=== PATIENT | male | born 1980 | race Caucasian/White ===

== ENCOUNTER 2016-07-04 21:17 | Emergency (ER) | payer SELFPAY ==
[~2016-07-04] VITALS: Wt 85.0 kg
[~2016-07-04 21:17] MED LIST: CYCL-319 PO; IBUP-1542 PO; NAPR-260 PO; TRAM50TA2 PO
[2016-07-04] MEDS ORDERED: CEFTRIAXONE 250 MG INJ IM ONE (22:30)
[2016-07-04] MEDS ORDERED: AZITHROMYCIN 250 MG TAB PO ONE (22:30)
[2016-07-04 22:41] LABS: URINE BLOOD (Dip) POC Negative (NEGATIVE)
--- NOTE | 2016-07-04 23:02 | ERD ---
ER Documentation Chief Complaint Date/Time DATE: 07/04/16 TIME: 22:59 Chief Complaint tip of penile pain x 1 day HPI This is a 35-year-old male presents to the ER with dysuria that started today. Patient states that he expresses burning at the tip of his penis every time he urinates. Patient denies any penile discharge, or penile lesions. Patient denies any anal pain. He denies any urinary retention. Patient denies any fevers or chills. He is currently sexually active continue women. He uses condom while having sexual intercourse, however does not use condoms while having oral intercourse. ROS 12 point review of systems was done, all negative except per HPI. Medications Home Meds Active Scripts Naproxen* (Naprosyn*) 500 Mg Tablet, 500 MG PO BID Y for PAIN AND/OR INFLAMMATION, #30 TAB Prov:LIANG MEDEROS. DIVISIONAL HUMAN RESOURCES DIRECTOR 03/03/16 Ibuprofen* (Motrin*) 600 Mg Tab, 600 MG PO Q6, #30 TAB Prov:JAMES RODRIGUEZ 06/20/15 Tramadol HCl (Tramadol HCl) 50 Mg Tab, 50 MG PO Q6 Y for PAIN, #10 TAB Prov:BUD HARTMAN 03/12/15 Naproxen* (Naprosyn*) 500 Mg Tablet, 500 MG PO BID Y for PAIN AND/OR INFLAMMATION, #30 TAB Prov:ELY JUAREZ PA-C 02/19/15 Cyclobenzaprine Hcl* (Cyclobenzaprine Hcl*) 10 Mg Tablet, 10 MG PO TID, #20 TAB Prov:ELY JUAREZ PA-C 02/19/15 Reported Medications [none] Unknown Strength No Conflict Check 06/18/15 Allergies Allergies: Coded Allergies: Fish Containing Products (Verified Allergy, Unknown, RASH, 07/04/16) guaifenesin (Verified Allergy, Unknown, 07/04/16) PMhx/Soc Medical and Surgical Hx: pt denies Medical Hx, pt denies Surgical Hx History of Surgery: No Anesthesia Reaction: No Hx Neurological Disorder: No Hx Respiratory Disorders: No Hx Cardiac Disorders: No Hx Psychiatric Problems: No Hx Miscellaneous Medical Probl: No Hx Alcohol Use: Yes Hx Substance Use: No Hx Tobacco Use: No Physical Exam Vitals Vital Signs Date Time Temp Pulse Resp B/P Pulse Ox O2 Delivery O2 Flow Rate FiO2 07/04/16 21:25 98.5 69 20 147/85 99 Physical Exam GENERAL: The patient is well developed and appropriate for usual state of health , in no apparent distress. HEENT: Atraumatic. CHEST: Clear to auscultation bilaterally. There are no rales, wheezes or rhonchi. HEART: Regular rate and rhythm. No murmurs, clicks, rubs or gallops. ABDOMEN: Soft, nontender and nondistended. Good bowel sounds. No rebound or guarding. No gross peritonitis. No gross organomegaly or masses. No Ortiz sign or McBurney point tenderness. BACK: No midline or flank tenderness. : No penile discharge, redness, lesions. No testicular pain or swelling NEURO: Alert and oriented. Results 24 hrs Laboratory Tests Test 07/04/16 22:42 Bedside Urine Blood Negative Bedside Urine Glucose (UA) Negative Bedside Urine Ketones (LAB) Negative Bedside Urine Leukocyte Esterase (L Negative Bedside Urine Nitrite (LAB) Negative Bedside Urine Protein (LAB) Negative Bedside Urine pH (LAB) 6.5 Current Medications Medications (Trade) Dose Ordered Sig/Kacy Route PRN Reason Start Time Stop Time Status Last Admin Dose Admin Ceftriaxone Sodium (Rocephin) 250 mg ONCE ONCE IM 07/04/16 22:30 07/04/16 22:31 DC Azithromycin (Zithromax) 1,000 mg ONCE ONCE PO 07/04/16 22:30 07/04/16 22:31 DC Departure Diagnosis: Primary Impression: Dysuria Condition: Stable Patient Instructions: Dysuria Additional Instructions: Call your primary care doctor TOMORROW for an appointment during the next 1-2 days.See the doctor sooner or return here if your condition worsens before your appointment time. JAMES RODRIGUEZ Jul 04, 2016 23:02
[2016-07-04 23:10] VITALS: RESP 20; TEMP 98
== END 2016-07-04 23:10 | disposition home or self-care (01) ==
LOC: FTE 21:17
DX: R30.0 Dysuria (principal)
CPT/HCPCS: 81003; 87591; J0696; 96372

== ENCOUNTER 2016-07-08 11:41 | Emergency (ER) | payer SELFPAY ==
[~2016-07-08] VITALS: Ht 170.2 cm; Wt 83.0 kg
[2016-07-08 12:06] VITALS: Ht 170.2 cm; Wt 83.0 kg
== END 2016-07-08 18:30 | disposition left against medical advice (07) ==
LOC: FTE 11:41
DX: Z53.21 Procedure and treatment not carried out due to patient leaving prior to being seen by health care provider (principal)

== ENCOUNTER 2016-07-30 08:09 | Emergency (ER) | payer MEDICAID ==
[~2016-07-30] VITALS: Wt 72.0 kg
[2016-07-30] MEDS ORDERED: KETOROLAC 30 MG INJ IM STA (08:52)
--- NOTE | 2016-07-30 09:27 | ERD ---
ER Documentation Chief Complaint Date/Time DATE: 07/30/16 TIME: 09:24 Chief Complaint headache with no fevers and no neuro deficit. no recent trauma HPI 36-year-old male complaining of headaches 3 days. The pain is in the bilateral parietal region. He took Tylenol at home without resolution of the headache. Patient stated that he had similar headaches in the past, but usually resolve with Tylenol. Patient also reports feeling dizzy when he is standing up. States that he drinks at least 6 bottles of water a day. He is under a lot of stress at home, taking care of his mother who recently had a stroke in addition of being a single parent. Denies fever or chills. Denies fatigue. Denies shortness of breath. Denies recent head trauma. Denies visual or auditory deficits. Denies one-sided numbness or weakness. ROS All systems reviewed and are negative except as per history of present illness. Medications Home Meds Active Scripts Acetaminophen/Caffeine (Excedrin Tension Headache Cplt) 1 Each Tablet, 1 EACH PO Q6, #30 TAB Prov:LIANG MEDEROS. GYRO MECHANIC 07/30/16 Naproxen* (Naprosyn*) 500 Mg Tablet, 500 MG PO BID Y for PAIN AND/OR INFLAMMATION, #30 TAB Prov:LIANG MEDEROS. GYRO MECHANIC 03/03/16 Ibuprofen* (Motrin*) 600 Mg Tab, 600 MG PO Q6, #30 TAB Prov:JAMES RODRIGUEZ 06/20/15 Tramadol HCl (Tramadol HCl) 50 Mg Tab, 50 MG PO Q6 Y for PAIN, #10 TAB Prov:BUD HARTMAN 03/12/15 Naproxen* (Naprosyn*) 500 Mg Tablet, 500 MG PO BID Y for PAIN AND/OR INFLAMMATION, #30 TAB Prov:ELY JUAREZ PA-C 02/19/15 Cyclobenzaprine Hcl* (Cyclobenzaprine Hcl*) 10 Mg Tablet, 10 MG PO TID, #20 TAB Prov:ELY JUAREZ PA-C 02/19/15 Reported Medications [none] Unknown Strength No Conflict Check 06/18/15 Allergies Allergies: Coded Allergies: Fish Containing Products (Verified Allergy, Unknown, RASH, 07/04/16) guaifenesin (Verified Allergy, Unknown, 07/04/16) PMhx/Soc Medical and Surgical Hx: pt denies Medical Hx History of Surgery: No Anesthesia Reaction: No Hx Neurological Disorder: No Hx Respiratory Disorders: No Hx Cardiac Disorders: No Hx Psychiatric Problems: No Hx Miscellaneous Medical Probl: No Hx Alcohol Use: Yes (almost daily) Hx Substance Use: No Hx Tobacco Use: No Physical Exam Vitals Vital Signs Date Time Temp Pulse Resp B/P Pulse Ox O2 Delivery O2 Flow Rate FiO2 07/30/16 08:11 98.5 72 16 130/85 99 Physical Exam General impression: Well-developed, well-nourished. Alert, oriented, in no acute distress Head: Normocephalic, atraumatic. Eyes: PERRL, EOM normal. Conjunctiva not injected. ENT: External canals clear. TM's pearly lacy. Nasal mucosa, oral mucosa and oropharynx are normal. Neck: Supple, nontender. No lymphadenopathy. No nuchal rigidity. Bilateral upper trapezius spasm noted Respiration: Normal respiratory effort. Lungs clear to auscultate bilaterally. No wheezes, rales or rhonchi. Cardiovascular: Regular rate and rhythm. No murmurs or extra heart sounds. Neuro: Mental status normal, speech normal. SOFTWARE DEVELOPMENT INTERN II-XII intact. Normal sensation and strength in all 4 extremities. No focal weakness noted. Skin: Normal turgor. No rash or lesions. Psych: Normal mood and affect. Results 24 hrs Current Medications Medications (Trade) Dose Ordered Sig/Kacy Route PRN Reason Start Time Stop Time Status Last Admin Dose Admin Ketorolac Tromethamine (Toradol) 30 mg ONCE STAT IM 07/30/16 08:52 07/30/16 08:53 DC 07/30/16 09:08 Procedures/MDM Toradol 30 mg IM given to the patient in the ED. Patient reports improvement of headache after Toradol. Low suspicion for intracranial hemorrhage, brain tumor , stroke, or vertebral artery dissection. Patient appears well, stable for discharge and outpatient management. Medical decision making shared with patient and family. Education provided to patient and family. Patient and family expressed understanding of the plan. Medications on discharge: Excedrin tension headache. Follow-up: Primary care provider in 2-3 days or return to ED if worse. LIANG MEDEROS NP Jul 30, 2016 09:27
[2016-07-30] MEDS ORDERED: ACET1TAB16 PO (09:48)
== END 2016-07-30 09:59 | disposition home or self-care (01) ==
LOC: FTE 08:09
DX: R51 Headache (principal); R42 Dizziness and giddiness
CPT/HCPCS: 96372; J1885; Z7502

== ENCOUNTER 2016-09-12 21:56 | Emergency (ER) | payer BC, MEDICAID ==
[~2016-09-12] VITALS: Ht 165.1 cm; Wt 83.0 kg
[~2016-09-12 21:56] MED LIST changes: +ACET1TAB16 PO
[2016-09-12 22:01] VITALS: Ht 165.1 cm; Wt 83.0 kg
--- NOTE | 2016-09-12 22:43 | ERD ---
ER Documentation Chief Complaint Date/Time DATE: 09/12/16 TIME: 22:26 Chief Complaint headache x 1 month HPI 36-year-old male presents here in emergency department for complaints of headache for one month, has been seen a month ago for the same problem, continues to have the headache, was taking Excedrin and naproxen only moderately. Patient describing the pain as throbbing pain,4/10 scale, accompanied with nausea. Patient has been nauseous. Patient denies any fever or chills. Patient denies any recent travel. Patient denies any neck rigidity. Patient denies any numbness or tingling. Patient denies any blurry vision. ROS All systems reviewed and are negative except as per history of present illness. Medications Home Meds Active Scripts Acetaminophen/Caffeine (Excedrin Tension Headache Cplt) 1 Each Tablet, 1 EACH PO Q6, #30 TAB Prov:LIANG MEDEROS. AGRICULTURAL RESEARCH TECHNICIAN 07/30/16 Naproxen* (Naprosyn*) 500 Mg Tablet, 500 MG PO BID Y for PAIN AND/OR INFLAMMATION, #30 TAB Prov:LIANG MEDEROS. AGRICULTURAL RESEARCH TECHNICIAN 03/03/16 Ibuprofen* (Motrin*) 600 Mg Tab, 600 MG PO Q6, #30 TAB Prov:JAMES RODRIGUEZ 06/20/15 Tramadol HCl (Tramadol HCl) 50 Mg Tab, 50 MG PO Q6 Y for PAIN, #10 TAB Prov:BUD HARTMAN 03/12/15 Naproxen* (Naprosyn*) 500 Mg Tablet, 500 MG PO BID Y for PAIN AND/OR INFLAMMATION, #30 TAB Prov:ELY JUAREZ PA-C 02/19/15 Cyclobenzaprine Hcl* (Cyclobenzaprine Hcl*) 10 Mg Tablet, 10 MG PO TID, #20 TAB Prov:ELY JUAREZ PA-C 02/19/15 Reported Medications [none] Unknown Strength No Conflict Check 06/18/15 Allergies Allergies: Coded Allergies: Fish Containing Products (Verified Allergy, Unknown, RASH, 07/04/16) guaifenesin (Verified Allergy, Unknown, 07/04/16) PMhx/Soc Medical and Surgical Hx: pt denies Medical Hx, pt denies Surgical Hx History of Surgery: No Anesthesia Reaction: No Hx Neurological Disorder: No Hx Respiratory Disorders: No Hx Cardiac Disorders: No Hx Psychiatric Problems: No Hx Miscellaneous Medical Probl: No Hx Alcohol Use: Yes (almost daily) Hx Substance Use: No Hx Tobacco Use: No FmHx Family History: No coronary disease, No diabetes, No other Physical Exam Vitals Vital Signs Date Time Temp Pulse Resp B/P Pulse Ox O2 Delivery O2 Flow Rate FiO2 09/12/16 22:01 98.4 64 20 143/89 98 Physical Exam GENERAL: The patient is well developed and appropriate for usual state of health, in no apparent distress. CHEST: Clear to auscultation bilaterally. There are no rales, wheezes or rhonchi. HEART: Regular rate and rhythm. No murmurs, clicks, rubs or gallops. No S3 or S4. ABDOMEN: Soft, nontender and nondistended. Good bowel sounds. No rebound or guarding. No gross peritonitis. No gross organomegaly or masses. No Ortiz sign or McBurney point tenderness. BACK: No midline or flank tenderness. EXTREMITIES: Equal pulses bilaterally. There is no peripheral clubbing, cyanosis or edema. No focal swelling or erythema. Full range of motion. Grossly neurovascularly intact. NEURO: Alert and oriented. Cranial nerves 2-12 intact. Motor strength in all 4 extremities with 5/5 strength. Sensation grossly intact. Normal speech and gait. SKIN: There is no apparent rash or petechia. The skin is warm and dry. HEMATOLOGIC AND LYMPHATIC: There is no evidence of excessive bruising or lymphedema. No gross cervical, axillary, or inguinal lymphadenopathy. Results 24 hrs PROCEDURE: Noncontrast CT Head. CLINICAL INDICATION: Pain. TECHNIQUE: Noncontrast CT of the head was obtained. The administered radiation dose was CTDI vol = 45 mGy, DLP = 720 mGy-cm. COMPARISON: No pertinent prior examinations were submitted for comparison. FINDINGS: The ventricles and sulci are within normal limits. There is no acute intracranial hemorrhage or extra-axial fluid collection. There is no mass effect. No midline shift is identified. There is no loss of escobar-white differentiation to suggest acute infarction. The orbits are within normal limits. The paranasal sinuses and mastoid air cells are without fluid. No destructive osseous lesion is identified. IMPRESSION: No acute findings. RPTAT: HIKT .Artie Chapa MD, MD Date Time Electronically viewed and signed by .Artie Chapa MD, on 09/12/2016 23:30 .T/ CC: LUDMILA BARRERA NP Procedures/MDM Medical Decision Making: Patient's symptoms of headache nonspecific at this time , possible migraine headache, tension headache. There is low suspicion for neurological emergencies at this time since patients neurologic exam is normal. Patient did not have any altered level consciousness, vomiting, changes in balance or memory and did not have any acute injury. Patients CT scan of the head does not show any neurological emergencies at this time. Rx: Tramadol, Zofran Departure Diagnosis: Primary Impression: Headache Headache type: unspecified Headache chronicity pattern: acute headache Intractability: not intractable Qualified Code: R51 - Acute nonintractable headache, unspecified headache type Condition: Stable Patient Instructions: Self-Care for Headaches LUDMILA BARRERA NP Sep 12, 2016 22:42
--- NOTE | 2016-09-12 23:30 | RADRPT ---
PROCEDURE: Noncontrast CT Head. CLINICAL INDICATION: Pain. TECHNIQUE: Noncontrast CT of the head was obtained. The administered radiation dose was CTDI vol = 45 mGy, DLP = 720 mGy-cm. COMPARISON: No pertinent prior examinations were submitted for comparison. FINDINGS: The ventricles and sulci are within normal limits. There is no acute intracranial hemorrhage or ext ra-axial fluid collection. There is no mass effect. No midline shift is identified. There is no loss of escobar-white differentiation to suggest acute infarction. The orbits are within normal limits. The paranasal sinuses and mastoid air cells are without fluid. No destructive osseous lesion is identified. IMPRESSION: No acute findings. RPTAT: HIKT .Artie Chapa MD, MD Date Time Electronically viewed and signed by .Artie Chapa MD, on 09/12/2016 23:30 .T/
[2016-09-12] MEDS ORDERED: TRAM50TA2 PO (23:44)
== END 2016-09-12 23:56 | disposition home or self-care (01) ==
LOC: FTE 21:56
DX: R51 Headache (principal)
CPT/HCPCS: 70450

== ENCOUNTER 2017-02-02 08:13 | Emergency (ER) | payer BC ==
[~2017-02-02] VITALS: Ht 162.6 cm; Wt 83.0 kg
[2017-02-02 08:16] VITALS: Ht 162.6 cm; Wt 83.0 kg
[2017-02-02 08:57] LABS: BASOPHIL # 0.1 10^3/ul (0.0-0.1); BASOPHILS % 0.7 % (0.0-2.0); EOSINOPHILS # 0.3 10^3/ul (0.0-0.5); EOSINOPHILS % 3.7 % (0.0-7.0); HEMATOCRIT 40.9 % (42.0-52.0); HEMOGLOBIN 13.7 g/dl (14.0-18.0); LYMPHOCYTES # 2.5 10^3/ul (0.8-2.9); LYMPHOCYTES % 37.1 % (15.0-51.0); MEAN CORPUSCULAR HEMOGLOBIN 28.8 pg (29.0-33.0); MEAN CORPUSCULAR HGB CONC 33.5 g/dl (32.0-37.0); MEAN CORPUSCULAR VOLUME 86.1 fl (82.0-101.0); MEAN PLATELET VOLUME 10.3 fl (7.4-10.4); MONOCYTE # 0.5 10^3/ul (0.3-0.9); MONOCYTES % 7.4 % (0.0-11.0); NEUTROPHILS % 50.8 % (39.0-77.0); PLATELET COUNT 286 10^3/UL (140-415); RED BLOOD COUNT 4.75 10^6/ul (4.70-6.10); RED CELL DISTRIBUTION WIDTH 14.6 % (11.5-14.5); WHITE BLOOD COUNT 6.7 10^3/ul (4.8-10.8)
[2017-02-02] MEDS ORDERED: IBUPROFEN 600 MG TAB PO ONE (09:00)
[2017-02-02 09:07] LABS: ADD UMIC YES; UR ASCORBIC ACID NEGATIVE (NEGATIVE); UR BILIRUBIN (Dip) NEGATIVE (NEGATIVE); UR BLOOD (Dip) NEGATIVE (NEGATIVE); UR CLARITY CLEAR (CLEAR); UR COLOR COLORLESS (YELLOW); UR GLUCOSE (Dip) NEGATIVE (NEGATIVE); UR KETONES (Dip) NEGATIVE (NEGATIVE); UR LEUKOCYTE ESTERASE (Dip) TRACE Leu/ul (NEGATIVE); UR NITRITE (Dip) NEGATIVE (NEGATIVE); UR RBC 2 /HPF (0-5); UR SPECIFIC GRAVITY (Dip) 1.004 (1.003-1.030); UR TOTAL PROTEIN (Dip) NEGATIVE (NEGATIVE); UR UROBILINOGEN (Dip) NEGATIVE (NEGATIVE)
--- NOTE | 2017-02-02 09:10 | RADRPT ---
PROCEDURE: CT Abdomen and Pelvis without contrast. CLINICAL INDICATION: Abdominal pain. TECHNIQUE: Routine abdominopelvic CT was performed without intravenous contrast and reformatted in the axial, coronal, sagittal planes. Radiation dose: CTDIvol (mGy) = 15.0; total DLP mGy-cm = 991. One or more of the following radiation dose techniques were used: -Automated exposure control. -Adjust of the mA and/or kV according to patient size. -Use of iterative reconstruction technique. COMPARISON: None. FINDINGS: Kidneys demonstrate symmetric attenuation without hydronephrosis or obstructive uropathy. The disten ded urinary bladder demonstrates no stones or focal abnormality. Liver, gallbladder, biliary system, pancreas, adrenal glands, and spleen are unremarkable by unenhan herrera CT. No abnormal bowel wall thickening or dilatation. The appendix is normal. Small bilateral fat contain ing inguinal hernia. Pelvic viscera is unremarkable. No free fluid or fluid collection. Lung bases are clear. IMPRESSION: No abdominopelvic mass, lymphadenopathy, or focal acute inflammatory process. RPTAT: EE .Lavelle Boo MD, Date Time Electronically viewed and signed by .Lavelle Boo MD, on 02/02/2017 09:16 .C/
--- NOTE | 2017-02-02 09:34 | ERD ---
ER Documentation Chief Complaint Date/Time DATE: 02/02/17 TIME: 09:33 Chief Complaint LLQ PAIN X6 DAYS, DENIES VOMITTING HPI 36-year-old male otherwise healthy presents with a six-day history of left lower quadrant abdominal pain. He describes a sharp, intermittent, localized. He also states he has had some pain when he goes to urinate. He denies hematuria, flank pain. He denies fevers or chills, nausea, vomiting, diarrhea. ROS All systems reviewed and are negative except as per history of present illness. Medications Home Meds Active Scripts Ibuprofen* (Motrin*) 600 Mg Tab, 600 MG PO Q6, #30 TAB Prov:MARY DUNN PA-C 02/02/17 Tramadol HCl (Tramadol HCl) 50 Mg Tablet, 50 MG PO Q6 Y for SEVERE PAIN LEVEL 7- 10, #20 TAB Prov:LUDMILA BARRERA WOOD TREATING INSPECTOR 09/12/16 Acetaminophen/Caffeine (Excedrin Tension Headache Cplt) 1 Each Tablet, 1 EACH PO Q6, #30 TAB Prov:LIANG MEDEROS. WOOD TREATING INSPECTOR 07/30/16 Naproxen* (Naprosyn*) 500 Mg Tablet, 500 MG PO BID Y for PAIN AND/OR INFLAMMATION, #30 TAB Prov:LIANG MEDEROS. WOOD TREATING INSPECTOR 03/03/16 Ibuprofen* (Motrin*) 600 Mg Tab, 600 MG PO Q6, #30 TAB Prov:JAMES RODRIGUEZ 06/20/15 Tramadol HCl (Tramadol HCl) 50 Mg Tab, 50 MG PO Q6 Y for PAIN, #10 TAB Prov:BUD HARTMAN 03/12/15 Naproxen* (Naprosyn*) 500 Mg Tablet, 500 MG PO BID Y for PAIN AND/OR INFLAMMATION, #30 TAB Prov:ELY JUAREZ PA-C 02/19/15 Cyclobenzaprine Hcl* (Cyclobenzaprine Hcl*) 10 Mg Tablet, 10 MG PO TID, #20 TAB Prov:ELY JUAREZ PA-C 02/19/15 Reported Medications [none] Unknown Strength No Conflict Check 06/18/15 Allergies Allergies: Coded Allergies: Fish Containing Products (Verified Allergy, Unknown, RASH, 07/04/16) guaifenesin (Verified Allergy, Unknown, 07/04/16) PMhx/Soc Medical and Surgical Hx: pt denies Medical Hx, pt denies Surgical Hx History of Surgery: No Anesthesia Reaction: No Hx Neurological Disorder: No Hx Respiratory Disorders: No Hx Cardiac Disorders: No Hx Psychiatric Problems: No Hx Miscellaneous Medical Probl: No Hx Alcohol Use: Yes (almost daily) Hx Substance Use: No Hx Tobacco Use: No Physical Exam Vitals Vital Signs Date Time Temp Pulse Resp B/P Pulse Ox O2 Delivery O2 Flow Rate FiO2 02/02/17 08:16 97.5 60 18 138/91 98 Physical Exam General: Well-developed, well-nourished. The patient appears in no acute distress. HEENT: Head is normocephalic, atraumatic. No scleral icterus Neck: Supple. Nontender. Lungs: Clear to auscultation. Normal air movement. Heart: Regular rate and rhythm. S1 and S2 are normal. No murmurs, gallops, or rubs. Abdomen: Soft, mild tenderness in the left lower quadrant, no masses or rebound pain, nondistended. Bowel sounds are normoactive. Extremities: No clubbing or cyanosis. Normal pulses. Moving extremities x 4. No weakness. Neurologic: Alert and oriented 3. No focal deficits. Skin: Normal turgor. No rash or lesions. Result Diagram: 02/02/17 0849 02/02/17 0849 Results 24 hrs Laboratory Tests Test 02/02/17 08:37 02/02/17 08:49 Urine Color COLORLESS Urine Clarity CLEAR Urine pH 7.0 Urine Specific [place] 1.004 Urine Ketones NEGATIVEmg/dL Urine Nitrite NEGATIVEmg/dL Urine Bilirubin NEGATIVEmg/dL Urine Urobilinogen NEGATIVEmg/dL Urine Leukocyte Esterase TRACELeu/ul Urine Microscopic RBC 2/HPF Urine Microscopic WBC 1/HPF Urine Hemoglobin NEGATIVEmg/dL Urine Glucose NEGATIVEmg/dL Urine Total Protein NEGATIVEmg/dl White Blood Count 6.710^3/ul Red Blood Count 4.7510^6/ul Hemoglobin 13.7g/dl Hematocrit 40.9% Mean Corpuscular Volume 86.1fl Mean Corpuscular Hemoglobin 28.8pg Mean Corpuscular Hemoglobin Concent 33.5g/dl Red Cell Distribution Width 14.6% Platelet Count 29559^3/UL Mean Platelet Volume 10.3fl Neutrophils % 50.8% Lymphocytes % 37.1% Monocytes % 7.4% Eosinophils % 3.7% Basophils % 0.7% Nucleated Red Blood Cells % 0.0/100WBC Neutrophils # (Manual) 3.410^3/ul Lymphocytes # 2.510^3/ul Monocytes # 0.510^3/ul Eosinophils # 0.310^3/ul Basophils # 0.110^3/ul Nucleated Red Blood Cells # 0.010^3/ul Sodium Level 142mmol/L Potassium Level 4.1mmol/L Chloride Level 103mmol/L Carbon Dioxide Level 26mmol/L Anion Gap 17 Blood Urea Nitrogen 10mg/dl Creatinine 0.93mg/dl Glucose Level 102mg/dl Calcium Level 10.0mg/dl Total Bilirubin 0.6mg/dl Direct Bilirubin 0.00mg/dl Indirect Bilirubin 0.6mg/dl Aspartate Amino Transf (AST/SGOT) 32IU/L Alanine Aminotransferase (ALT/SGPT) 38IU/L Alkaline Phosphatase 112IU/L Total Protein 9.0g/dl Albumin 4.9g/dl Globulin 4.10g/dl Albumin/Globulin Ratio 1.19 Lipase 136U/L Current Medications Medications (Trade) Dose Ordered Sig/Kacy Route PRN Reason Start Time Stop Time Status Last Admin Dose Admin Ibuprofen (Motrin) 600 mg ONCE ONCE PO 02/02/17 09:00 02/02/17 09:01 DC 02/02/17 08:45 Ceftriaxone Sodium (Rocephin) 250 mg ONCE ONCE IM 02/02/17 10:30 02/02/17 10:31 DC 02/02/17 10:33 Azithromycin (Zithromax) 1,000 mg ONCE ONCE PO 02/02/17 10:30 02/02/17 10:31 DC 02/02/17 10:33 DIAGNOSTIC IMAGING REPORT Patient: ROCIO BRADFORD : 1980 Age: 36 Sex: M MR #: [id number] DOS: 02/02/17 0832 Ordering MD: MARY DUNN PA-C Location: [facility] Room/Bed: PROCEDURE: CT Abdomen and Pelvis without contrast. CLINICAL INDICATION: Abdominal pain. TECHNIQUE: Routine abdominopelvic CT was performed without intravenous contrast and reformatted in the axial, coronal, sagittal planes. Radiation dose: CTDIvol (mGy) = 15.0; total DLP mGy-cm = 991. One or more of the following radiation dose techniques were used: -Automated exposure control. -Adjust of the mA and/or kV according to patient size. -Use of iterative reconstruction technique. COMPARISON: None. FINDINGS: Kidneys demonstrate symmetric attenuation without hydronephrosis or obstructive uropathy. The distended urinary bladder demonstrates no stones or focal abnormality. Liver, gallbladder, biliary system, pancreas, adrenal glands, and spleen are unremarkable by unenhanced CT. No abnormal bowel wall thickening or dilatation. The appendix is normal. Small bilateral fat containing inguinal hernia. Pelvic viscera is unremarkable. No free fluid or fluid collection. Lung bases are clear. IMPRESSION: No abdominopelvic mass, lymphadenopathy, or focal acute inflammatory process. RPTAT: EE .Lavelle Boo MD, MD Date Time Electronically viewed and signed by .Lavelle Boo MD, MD on 02/02/2017 09:16 .C/ Procedures/MDM 36-year-old comes in with painful urination, left lower quadrant abdominal pain for the past week. Patient does not have any evidence of kidney stone, diverticulitis, bowel obstruction, abdominal mass. He does state that he is in a relationship with a woman who is , he has had painful urination, urine does not show any definite signs of a urinary tract infection he will be presumed urethritis. Departure Diagnosis: Primary Impression: Urethritis Additional Impression: Abdominal pain Condition: MARY Wu PA-C Feb 02, 2017 09:34
[2017-02-02 09:39] LABS: ALBUMIN 4.9 g/dl (3.3-4.9); ALBUMIN/GLOBULIN RATIO 1.19; BILIRUBIN,INDIRECT 0.6 mg/dl (0-1.1); BILIRUBIN,TOTAL 0.6 mg/dl (0.2-1.3); CREATININE 0.93 mg/dl (0.61-1.24); POTASSIUM 4.1 mmol/L (3.5-5.1)
[2017-02-02] MEDS ORDERED: IBUP-1542 PO (10:10)
[2017-02-02] MEDS ORDERED: CEFTRIAXONE 250 MG INJ IM ONE (10:30)
[2017-02-02] MEDS ORDERED: AZITHROMYCIN 250 MG TAB PO ONE (10:30)
== END 2017-02-02 10:55 | disposition home or self-care (01) ==
LOC: FTE 08:13
DX: N34.2 Other urethritis (principal)
CPT/HCPCS: 36415; 74176; 80053; 81001; 83690; 85025; 87086; 87591; 96372; J0696; Z7502; Z7610

== ENCOUNTER 2017-09-23 09:19 | Emergency (ER) | END 2017-09-23 09:59 | disposition home or self-care (01) ==

== ENCOUNTER 2018-05-31 08:14 | Emergency (ER) | payer BC ==
[~2018-05-31] VITALS: Wt 87.3 kg
[~2018-05-31 08:14] MED LIST changes: -CYCL-319 PO; +CYCL10TA7 PO; -NAPR-260 PO; +NAPR-985 PO
[2018-05-31 08:16] VITALS: BP 151/80; PULSE 86; RESP 18
[2018-05-31] MEDS ORDERED: CIPR500T4 PO (10:00)
--- NOTE | 2018-05-31 10:07 | ERD ---
ER Documentation Chief Complaint Chief Complaint PAINFUL URINATION WITH SUPRAPUBIC PAIN SINCE THURSDAY HPI Patient is a 37-year-old male with no past medical history presents ER for concerns of dysuria and suprapubic pain times 3 days. Patient states the pain originates in the suprapubic region and radiates down into his testicles. Patient denies any trauma or falls. Patient denies any penile discharge. Patient denies any fevers, chills, nausea, vomiting, flank pain or upper abdominal pain. Patient states he sexually active with his girlfriend however he denies any other partners. ROS All systems reviewed and are negative except as per history of present illness. Medications Home Meds Active Scripts Ciprofloxacin Hcl* (Ciprofloxacin Hcl*) 500 Mg Tablet, 500 MG PO BID for 10 Days, TAB Prov:RAIN WALSH PA-C 05/31/18 Ibuprofen* (Motrin*) 600 Mg Tab, 600 MG PO Q6, #30 TAB Prov:MARIZA MELISSA PA-C 05/07/18 Ibuprofen* (Motrin*) 600 Mg Tab, 600 MG PO Q6, #30 TAB Prov:MARY DUNN PA-C 02/02/17 Tramadol HCl (Tramadol HCl) 50 Mg Tablet, 50 MG PO Q6 PRN for SEVERE PAIN LEVEL 7-10, #20 TAB Prov:LUDMILA BARRERA PICKLER HELPER 09/12/16 Acetaminophen/Caffeine (Excedrin Tension Headache Cplt) 1 Each Tablet, 1 EACH PO Q6, #30 TAB Prov:LIANG MEDEROS. PICKLER HELPER 07/30/16 Naproxen* (Naprosyn*) 500 Mg Tablet, 500 MG PO BID PRN for PAIN AND/OR INFLAMMATION, #30 TAB Prov:LIANG MEDEROS. PICKLER HELPER 03/03/16 Ibuprofen* (Motrin*) 600 Mg Tab, 600 MG PO Q6, #30 TAB Prov:JAMES RODRIGUEZ 06/20/15 Tramadol HCl (Tramadol HCl) 50 Mg Tab, 50 MG PO Q6 PRN for PAIN, #10 TAB Prov:BUD HARTMAN 03/12/15 Naproxen* (Naprosyn*) 500 Mg Tablet, 500 MG PO BID PRN for PAIN AND/OR INFLAMMATION, #30 TAB Prov:ELY JUAREZ PA-C 02/19/15 Cyclobenzaprine Hcl* (Cyclobenzaprine Hcl*) 10 Mg Tablet, 10 MG PO TID, #20 TAB Prov:ELY JUAREZ MASHA 02/19/15 Reported Medications [none] Unknown Strength No Conflict Check 06/18/15 Allergies Allergies: Coded Allergies: Fish Containing Products (Verified Allergy, Unknown, RASH, 05/07/18) guaifenesin (Verified Allergy, Unknown, 05/07/18) PMhx/Soc History of Surgery: No Anesthesia Reaction: No Hx Neurological Disorder: No Hx Respiratory Disorders: No Hx Cardiac Disorders: No Hx Psychiatric Problems: No Hx Miscellaneous Medical Probl: Yes (HIGH CHOLESTEROL) Hx Alcohol Use: Yes (every weekend) Hx Substance Use: No Hx Tobacco Use: No FmHx Family History: No diabetes Physical Exam Vitals Vital Signs Date Temp Pulse Resp B/P (MAP) Pulse Ox O2 O2 Flow FiO2 Time Delivery Rate 05/31/18 97.9 86 18 151/80 100 08:16 (103) Physical Exam GENERAL: Well-developed, well-nourished male. Appears in no acute distress. HEAD: Normocephalic, atraumatic. EYES: Pupils are equally reactive bilaterally. EOMs grossly intact. No conjunctival erythema. ENT: Moist mucous membranes. No uvula deviation. No kissing tonsils. NECK: Supple. No meningismus. Normal range of motion of the neck. LUNG: Clear to auscultation bilaterally. No rhonchi, wheezing, rales or coarse breath sounds. HEART: Regular rate and rhythm. No murmurs, rubs or gallops. ABDOMEN: Soft, and nondistended. Minimally tender to palpation in the suprapubic region. Positive bowel sounds in all four quadrants. No rebound tenderness, no guarding. (-) McBurney's point tenderness. No CVA tenderness. 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 Normal, external genitalia without any lesions, masses or deformities. No penile discharge noted. Normal scrotum without any masses, tenderness, swelling or erythema. No inguinal hernias. EXTREMITIES: Equal pulses bilaterally. No peripheral clubbing, cyanosis or edema. No unilateral leg swelling. NEUROLOGIC: Alert and oriented. Moving all four extremities without any difficulty. Normal speech. Steady gait. SKIN: Normal color. Warm and dry. No rashes or lesions. Results 24 hrs Laboratory Tests Test 05/31/18 08:53 Bedside Urine pH (LAB) 6.0 Bedside Urine Protein (LAB) Negative Bedside Urine Glucose (UA) Negative Bedside Urine Ketones (LAB) Negative Bedside Urine Blood Negative Bedside Urine Nitrite (LAB) Negative Bedside Urine Leukocyte Esterase (L Negative Procedures/MDM ED COURSE: The patient was stable throughout ED course. I kept the patient and/or family informed of laboratory and diagnostic imaging results throughout the ED course. DIAGNOSTIC IMAGING: Read by radiologist. DIAGNOSTIC IMAGING REPORT Patient: ROCIO BRADFORD : 1980 Age: 37 Sex: M MR #: [id number] DOS: 05/31/18 0835 Ordering MD: RAIN WALSH PA-C Location: [facility]TE Room/Bed: PROCEDURE: US Scrotum. CLINICAL INDICATION: Pain, swelling TECHNIQUE: Multiple sonographic images of the scrotal region were obtained utilizing a linear array transducer with grayscale and color-flow and a Doppler imaging. The images were reviewed on a high-resolution PACS workstation. COMPARISON: No prior studies are available for comparison. FINDINGS: The right testicle is well visualized and has a normal echotexture. No focal areas of abnormal echogenicity are visualized. The right testicle measures 5.1 x 2.2 x 5.2 cm. There is normal color-flow. The right epididymis is visualized and unremarkable in appearance. There is normal color-flow. The left testicle is well visualized and has a normal echotexture. No focal areas abnormal echogenicity are visualized. The left testicle measures 5.0 x 2.7 x 4.0 cm. There is normal color-flow. The left epididymis is visualized and is unremarkable in appearance. There is normal color-flow. There are mild bilateral hydroceles. RPTAT: AA IMPRESSION: Mild bilateral hydroceles. Otherwise unremarkable. .Kenyon Galloway MD, MD Date Time Electronically viewed and signed by .Kenyon Galloway MD, MD on 05/31/2018 09:37 .S/ CC: RAIN WALSH PA-C [id number] MEDICAL DECISION MAKING: This is a 37-year-old male who presents the ER for concerns of dysuria and testicular pain times 3 days.. Vital signs were reviewed. Patient was afebrile. UA was negative for leukocytes, nitrates and hematuria. Urine was sent for culture. Urine also sent for gonorrhea and Chlamydia testing. Results are pending. Testicular ultrasound was benign except for some mild bilateral hydroceles see formal report above. Patient was advised we will contact him in 2-3 days if his gonorrhea chlamydia results are positive or if urine culture is positive. Patient advised I will start him on ciprofloxacin for concerns of cystitis. Low suspicion for for pyelonephritis, nephrolithiasis, appendicitis, diverticulitis, constipation, urethritis, prostatitis, epididymitis, testicular torsion. Patient was nontoxic, [id number] prior to discharge. PRESCRIPTIONS: Ciprofloxacin DISCHARGE: At this time, patient is stable for discharge and outpatient management. I have instructed the patient to follow-up with his/her primary care physician in 1-2 days. Patient should repeat UA in 2 weeks to check for resolution of urinary tract infection. If symptoms persist, patient may need to see a specialist for further examinations and testing. I have instructed the patient to promptly return to the ER at any time for any new or worsening symptoms including increased pain, fever, nausea, vomiting, urinary changes or weakness. The patient and/or family expressed understanding of and agreement with this plan. All questions were answered. Home care instructions were provided. Disclaimer: Inadvertent spelling and grammatical errors are likely due to EHR/dictation software use and do not reflect on the overall quality of patient care. Also, please note that the electronic time recorded on this note does not necessarily reflect the actual time of the patient encounter. Departure Diagnosis: Primary Impression: Dysuria Additional Impression: Testicular pain Condition: Fair Referrals: [facility] YOU HAVE RECEIVED A MEDICAL SCREENING EXAM AND THE RESULTS INDICATE THAT YOU DO NOT HAVE A CONDITION THAT REQUIRES URGENT TREATMENT IN THE EMERGENCY DEPARTMENT. FURTHER EVALUATION AND TREATMENT OF YOUR CONDITION CAN WAIT UNTIL YOU ARE SEEN IN YOUR DOCTORS OFFICE WITHIN THE NEXT 1-2 DAYS. IT IS YOUR RESPONSIBILITY TO MAKE AN APPOINTMENT FOR FOLOW-UP CARE. IF YOU HAVE A PRIMARY DOCTOR --you should call your primary doctor and schedule an appointment IF YOU DO NOT HAVE A PRIMARY DOCTOR YOU CAN CALL OUR PHYSICIAN REFERRAL HOTLINE AT IF YOU CAN NOT AFFORD TO SEE A PHYSICIAN YOU CAN CHOSE FROM THE FOLLOWING [facility] [address] [facility] [address] [facility] [address] [facility] [address] [facility] [address] [facility]. [facility] [address] [facility]. [facility] YOU HAVE RECEIVED A MEDICAL SCREENING EXAM AND THE RESULTS INDICATE THAT YOU DO NOT HAVE A CONDITION THAT REQUIRES URGENT TREATMENT IN THE EMERGENCY DEPARTMENT. FURTHER EVALUATION AND TREATMENT OF YOUR CONDITION CAN WAIT UNTIL YOU ARE SEEN IN YOUR DOCTORS OFFICE WITHIN THE NEXT 1-2 DAYS. IT IS YOUR RESPONSIBILITY TO MAKE AN APPOINTMENT FOR FOLOW-UP CARE. IF YOU HAVE A PRIMARY DOCTOR --you should call your primary doctor and schedule and appointment IF YOU DO NOT HAVE A PRIMARY DOCTOR YOU CAN CALL OUR PHYSICIAN REFERRAL HOTLINE AT . IF YOU CAN NOT AFFORD TO SEE A PHYSICIAN YOU CAN CHOSE FROM THE FOLLOWING [facility]: [facility] [address] [place] [address] [facility] [address] [place] [address] [facility] + [facility] [address] [place] [address] Additional Instructions: Urine gonorrhea and Chlamydia testing pending. We will contact you if results are positive. Call your primary care doctor TOMORROW for an appointment during the next 1-2 days.See the doctor sooner or return here if your condition worsens before your appointment time. RAIN WALSH PA-C May 31, 2018 10:07
== END 2018-05-31 10:08 | disposition home or self-care (01) ==
LOC: FTE 08:14
DX: N50.819 Testicular pain, unspecified (principal); R30.0 Dysuria
CPT/HCPCS: 76870; 81003; 87086; 87591; Z7502

== ENCOUNTER 2018-07-19 19:18 | Emergency (ER) | payer BC ==
[2017-09-23 09:21] VITALS: Wt 88.6 kg
[~2018-07-19] VITALS: Wt 88.6 kg
[~2018-07-19 19:18] MED LIST changes: +CIPR500T4 PO
[2018-07-19] MEDS ORDERED: LIDOCAINE/MYLANTA 40 ML BTL PO STA (23:57)
[2018-07-19] MEDS ORDERED: ONDANSETRON (ODT) 4 MG TAB ODT STA (23:57)
--- NOTE | 2018-07-20 00:02 | ERD ---
ER Documentation Chief Complaint Chief Complaint burning epigastric pain and constipation since thursday. HPI Patient is a 38-year-old male who presents the ER for concerns of multiple complaints. Patient states he has had epigastric pain for last 3 days. He describes the pain to be burning in nature. Patient does admit to eating numerous spicy foods. Patient also admits to drinking beer on the weekends. He also states he drinks Coke daily with dinner. Patient denies any chest pain, shortness of breath, nausea, vomiting. Patient also admits to not having a bowel movement times 3 days. He states he is often burping. He does report gas passage. He denies any history of abdominal surgeries. ROS All systems reviewed and are negative except as per history of present illness. Medications Home Meds Active Scripts Famotidine* (Pepcid*) 20 Mg Tablet, 20 MG PO BID for 30 Days, TAB Prov:RAIN WALSHC 07/20/18 Magnesium Citrate* (Magnesium Citrate*) 296 Ml Solution, 296 ML PO ONCE, #1 BOTTLE Prov:RAIN WALSHC 07/20/18 Ciprofloxacin Hcl* (Ciprofloxacin Hcl*) 500 Mg Tablet, 500 MG PO BID for 10 Days, TAB Prov:RAIN WALSHC 05/31/18 Ibuprofen* (Motrin*) 600 Mg Tab, 600 MG PO Q6, #30 TAB Prov:MARIZA MELISSAC 05/07/18 Ibuprofen* (Motrin*) 600 Mg Tab, 600 MG PO Q6, #30 TAB Prov:MARY DUNNC 02/02/17 Tramadol HCl (Tramadol HCl) 50 Mg Tablet, 50 MG PO Q6 PRN for SEVERE PAIN LEVEL 7-10, #20 TAB Prov:LUDMILA BARRERA FANCY STITCHER 09/12/16 Acetaminophen/Caffeine (Excedrin Tension Headache Cplt) 1 Each Tablet, 1 EACH PO Q6, #30 TAB Prov:LIANG MEDEROS FANCY STITCHER 07/30/16 Naproxen* (Naprosyn*) 500 Mg Tablet, 500 MG PO BID PRN for PAIN AND/OR INFLAMMATION, #30 TAB Prov:LIANG MEDEROS. FANCY STITCHER 03/03/16 Ibuprofen* (Motrin*) 600 Mg Tab, 600 MG PO Q6, #30 TAB Prov:JAMES RODRIGUEZ 06/20/15 Tramadol HCl (Tramadol HCl) 50 Mg Tab, 50 MG PO Q6 PRN for PAIN, #10 TAB Prov:BUD HARTMAN 03/12/15 Naproxen* (Naprosyn*) 500 Mg Tablet, 500 MG PO BID PRN for PAIN AND/OR INFLAMMATION, #30 TAB Prov:ELY JUAREZ PA-C 02/19/15 Cyclobenzaprine Hcl* (Cyclobenzaprine Hcl*) 10 Mg Tablet, 10 MG PO TID, #20 TAB Prov:ELY JUAREZ PA-C 02/19/15 Reported Medications [none] Unknown Strength No Conflict Check 06/18/15 Allergies Allergies: Coded Allergies: Fish Containing Products (Verified Allergy, Unknown, RASH, 05/07/18) guaifenesin (Verified Allergy, Unknown, 05/07/18) PMhx/Soc History of Surgery: No Anesthesia Reaction: No Hx Neurological Disorder: No Hx Respiratory Disorders: No Hx Cardiac Disorders: No Hx Psychiatric Problems: No Hx Miscellaneous Medical Probl: Yes (HIGH CHOLESTEROL) Hx Alcohol Use: Yes (every weekend) Hx Substance Use: No Hx Tobacco Use: No FmHx Family History: No diabetes Physical Exam Vitals Vital Signs Date Temp Pulse Resp B/P (MAP) Pulse Ox O2 O2 Flow FiO2 Time Delivery Rate 07/19/18 98.5 83 20 163/97 98 20:05 (119) Physical Exam GENERAL: Well-developed, well-nourished male. Appears in no acute distress. Speaking in full sentences. HEAD: Normocephalic, atraumatic. EYES: Pupils are equally reactive bilaterally. EOMs grossly intact. No conjunctival erythema. ENT: Moist mucous membranes. No uvula deviation. No kissing tonsils. NECK: Supple. No meningismus. Normal range of motion of the neck. LUNG: Clear to auscultation bilaterally. No rhonchi, wheezing, rales or coarse breath sounds. HEART: Regular rate and rhythm. No murmurs, rubs or gallops. ABDOMEN: Soft. Tender to palpation in the epigastric region. Mildly distended. Positive bowel sounds in all four quadrants. No rebound tenderness, no guarding. (-) McBurney's point tenderness. No CVA tenderness. EXTREMITIES: Equal pulses bilaterally. No peripheral clubbing, cyanosis or edema. No unilateral leg swelling. NEUROLOGIC: Alert and oriented. Moving all four extremities without any difficulty. Normal speech. Steady gait. SKIN: Normal color. Warm and dry. No rashes or lesions. Result Diagram: 07/20/18 0009 07/20/18 0009 Results 24 hrs Laboratory Tests Test 07/20/18 00:09 White Blood Count 7.5 10^3/ul Red Blood Count 4.87 10^6/ul Hemoglobin 13.4 g/dl Hematocrit 42.2 % Mean Corpuscular Volume 86.7 fl Mean Corpuscular Hemoglobin 27.5 pg Mean Corpuscular Hemoglobin Concent 31.8 g/dl Red Cell Distribution Width 14.6 % Platelet Count 280 10^3/UL Mean Platelet Volume 9.7 fl Immature Granulocytes % 0.300 % Neutrophils % 42.8 % Lymphocytes % 44.0 % Monocytes % 8.6 % Eosinophils % 3.6 % Basophils % 0.7 % Nucleated Red Blood Cells % 0.0 /100WBC Immature Granulocytes # 0.020 10^3/ul Neutrophils # 3.2 10^3/ul Lymphocytes # 3.3 10^3/ul Monocytes # 0.7 10^3/ul Eosinophils # 0.3 10^3/ul Basophils # 0.1 10^3/ul Nucleated Red Blood Cells # 0.0 10^3/ul Sodium Level 140 mmol/L Potassium Level 4.8 mmol/L Chloride Level 101 mmol/L Carbon Dioxide Level 29 mmol/L Anion Gap 10 Blood Urea Nitrogen 12 mg/dl Creatinine 0.90 mg/dl Est Glomerular Filtrat Rate mL/min > 60 mL/min Glucose Level 109 mg/dl Calcium Level 9.9 mg/dl Total Bilirubin 0.4 mg/dl Direct Bilirubin 0.00 mg/dl Indirect Bilirubin 0.4 mg/dl Aspartate Amino Transf (AST/SGOT) 57 IU/L Alanine Aminotransferase (ALT/SGPT) 63 IU/L Alkaline Phosphatase 107 IU/L Total Protein 8.8 g/dl Albumin 4.8 g/dl Globulin 4.00 g/dl Albumin/Globulin Ratio 1.20 Lipase 123 U/L Current Medications Medications Dose Sig/Kacy Start Time Status Last (Trade) Ordered Route PRN Stop Time Admin Dose Reason Admin 40 ml ONCE STAT 07/19/18 DC 07/20/18 Miscellaneous PO 23:57 00:20 Medication 2/25/19 23:58 (Gi Cocktail (2)) Ondansetron 4 mg ONCE STAT 07/19/18 DC 07/20/18 HCl (Zofran ODT 23:57 00:19 Odt) 07/19/18 23:58 Procedures/MDM MEDICAL DECISION MAKING: This is a 38-year-old male presents the ER for concerns of epigastric pain and constipation for the last 3 days. Patient states he does eat spicy foods daily and does drink caffeinated beverages. Patient admits to alcohol use on the weekends.. Vital signs were reviewed. Patient is afebrile. Blood work was obtained. CBC showed no evidence of systemic infection or severe anemia. CMP showed no evidence of electrolyte abnormalities, severe acidosis, alkalosis, renal failure, or liver disease. Lipase showed no evidence of acute pancreatitis. Patient was given a GI cocktail and Zofran for symptoms. Patient will be discharged home with prescription of Pepcid. Patient was advised on dietary changes. In addition patient will be given prescription for Colace and magnesium citrate for his constipation. Patient advised to drink half bottle of magnesium citrate. If no bowel movement 2-3 hours, patient advised to drink second half. At this time the patient presentation is most consistent with GERD versus gastritis and constipation. Differential diagnosis included but was not limited to acute coronary syndrome, AAA, mesenteric ischemia, lower lobe pneumonia, DKA, bowel perforation, cholecystitis, choledocholithiasis, ascending ch olangitis, hepatic abscess, pancreatitis, splenic rupture, diverticulitis, UTI, pyelonephritis, nephrolithiasis, appendicitis, constipation, testicular torsion, epididymitis, urethritis, or prostatitis. PRESCRIPTIONS: Pepcid, magnesium citrate, Colace DISCHARGE: At this time, patient is stable for discharge and outpatient management. I have instructed the patient to follow-up with his/her primary care physician in 1-2 days. I have instructed the patient to promptly return to the ER at any time for any new or worsening symptoms including increased pain, nausea, vomiting, diarrhea, fever, weakness or LOC. The patient and/or family expressed understanding of and agreement with this plan. All questions were answered. Home care instructions were provided. Disclaimer: Inadvertent spelling and grammatical errors are likely due to EHR/dictation software use and do not reflect on the overall quality of patient care. Also, please note that the electronic time recorded on this note does not necessarily reflect the actual time of the patient encounter. Departure Diagnosis: Primary Impression: Epigastric pain Additional Impression: Constipation Constipation type: unspecified constipation type Qualified Codes: K59.00 - Constipation, unspecified Condition: Stable Patient Instructions: Constipation (Adult), Gerd (Adult), Epigastric Pain (Uncertain Cause) Referrals: [facility] YOU HAVE RECEIVED A MEDICAL SCREENING EXAM AND THE RESULTS INDICATE THAT YOU DO NOT HAVE A CONDITION THAT REQUIRES URGENT TREATMENT IN THE EMERGENCY DEPARTMENT. FURTHER EVALUATION AND TREATMENT OF YOUR CONDITION CAN WAIT UNTIL YOU ARE SEEN IN YOUR DOCTORS OFFICE WITHIN THE NEXT 1-2 DAYS. IT IS YOUR RESPONSIBILITY TO MAKE AN APPOINTMENT FOR FOLOW-UP CARE. IF YOU HAVE A PRIMARY DOCTOR --you should call your primary doctor and schedule an appointment IF YOU DO NOT HAVE A PRIMARY DOCTOR YOU CAN CALL OUR PHYSICIAN REFERRAL HOTLINE AT IF YOU CAN NOT AFFORD TO SEE A PHYSICIAN YOU CAN CHOSE FROM THE FOLLOWING [facility] [address] [facility] [address] [facility] [address] [facility] [address] [facility] [address] [facility]. [facility] [address] [facility]. [facility] YOU HAVE RECEIVED A MEDICAL SCREENING EXAM AND THE RESULTS INDICATE THAT YOU DO NOT HAVE A CONDITION THAT REQUIRES URGENT TREATMENT IN THE EMERGENCY DEPARTMENT. FURTHER EVALUATION AND TREATMENT OF YOUR CONDITION CAN WAIT UNTIL YOU ARE SEEN IN YOUR DOCTORS OFFICE WITHIN THE NEXT 1-2 DAYS. IT IS YOUR RESPONSIBILITY TO MAKE AN APPOINTMENT FOR FOLOW-UP CARE. IF YOU HAVE A PRIMARY DOCTOR --you should call your primary doctor and schedule and appointment IF YOU DO NOT HAVE A PRIMARY DOCTOR YOU CAN CALL OUR PHYSICIAN REFERRAL HOTLINE AT . IF YOU CAN NOT AFFORD TO SEE A PHYSICIAN YOU CAN CHOSE FROM THE FOLLOWING [facility] INSTITUTIONS: [facility] [address] [place] [address] [facility] [address] [place] [address] [facility] [address] [place] [address] Additional Instructions: Increase water intake. Increase fiber intake. Take magnesium citrate as advised. Drink half a bottle first. If no bowel movement in 2-3 hours, drink second half. Call your primary care doctor TOMORROW for an appointment during the next 1-2 days.See the doctor sooner or return here if your condition worsens before your appointment time. RAIN WALSH PA-C Jul 20, 2018 00:02
[2018-07-20] MEDS ORDERED: MAGN296S40 PO (02:04)
[2018-07-20] MEDS ORDERED: FAMO-96 PO (02:05)
[2018-07-20 02:35] VITALS: BP 119/81; PULSE 56; RESP 19
== END 2018-07-20 02:53 | disposition home or self-care (01) ==
LOC: E/R 19:18 → FTE 07-20 02:53
DX: R10.13 Epigastric pain (principal); K59.00 Constipation, unspecified
CPT/HCPCS: 36415; 80053; 83690; 85025; Z7502; Z7610; 99283

== ENCOUNTER 2018-10-25 09:21 | Emergency (ER) | payer BC ==
[~2018-10-25] VITALS: Wt 81.0 kg
[~2018-10-25 09:21] MED LIST changes: +FAMO-96 PO; +MAGN296S40 PO
[2018-10-25 09:24] VITALS: BP 153/71; PULSE 71; RESP 18
[2018-10-25] MEDS ORDERED: BEN25 PO (10:18)
[2018-10-25] MEDS ORDERED: HC30CR25 TOP (10:18)
--- NOTE | 2018-10-25 13:24 | ERD ---
ER Documentation Chief Complaint Chief Complaint POSSIBLE INSECT BITE TO RIGHT FOREARM. REDNESS AND DRAINAGE FOR 1 WEEK HPI 38-year-old male presenting with insect bite to the right forearm. Patient states is very itchy. He has not put any medications on it. He noted some clear drainage from the area. Denies any pain. Denies other medical problems. NKDA. Surgical history denies. Social history denies ROS All systems reviewed and are negative except as per history of present illness. Medications Home Meds Active Scripts Diphenhydramine Hcl* (Benadryl*) 25 Mg Cap, 25 MG PO Q6, #30 CAP Prov:ZACARIAS FRITZC 10/25/18 Hydrocortisone* Topical (Hydrocortisone* Topical) 2.5%-28.3 Gm Cream..g., 1 APPLIC TOP BID, #1 TUB Prov:ZACARIAS FRITZC 10/25/18 Famotidine* (Pepcid*) 20 Mg Tablet, 20 MG PO BID for 30 Days, TAB Prov:RAIN WALSH[facility] 07/20/18 Magnesium Citrate* (Magnesium Citrate*) 296 Ml Solution, 296 ML PO ONCE, #1 BOTTLE Prov:RAIN W[facility] 07/20/18 Ciprofloxacin Hcl* (Ciprofloxacin Hcl*) 500 Mg Tablet, 500 MG PO BID for 10 Da ys, TAB Prov:RAIN WALSH[facility] 05/31/18 Ibuprofen* (Motrin*) 600 Mg Tab, 600 MG PO Q6, #30 TAB Prov:MARIZA MELISSAC 05/07/18 Ibuprofen* (Motrin*) 600 Mg Tab, 600 MG PO Q6, #30 TAB Prov:MARY DUNNC 02/02/17 Tramadol HCl (Tramadol HCl) 50 Mg Tablet, 50 MG PO Q6 PRN for SEVERE PAIN LEVEL 7-10, #20 TAB Prov:LUDMILA BARRERA [employer] 09/12/16 Acetaminophen/Caffeine (Excedrin Tension Headache Cplt) 1 Each Tablet, 1 EACH PO Q6, #30 TAB Prov:LIANG MEDEROS NP 07/30/16 Naproxen* (Naprosyn*) 500 Mg Tablet, 500 MG PO BID PRN for PAIN AND/OR INFLAMMATION, #30 TAB Prov:LIANG MEDEROS [employer] 03/03/16 Ibuprofen* (Motrin*) 600 Mg Tab, 600 MG PO Q6, #30 TAB Prov:JAMES RODRIGUEZ 06/20/15 Tramadol HCl (Tramadol HCl) 50 Mg Tab, 50 MG PO Q6 PRN for PAIN, #10 TAB Prov:BUD HARTMANLaly 03/12/15 Naproxen* (Naprosyn*) 500 Mg Tablet, 500 MG PO BID PRN for PAIN AND/OR INFLAMMATION, #30 TAB Prov:ELY JUAREZ PA-C 02/19/15 Cyclobenzaprine Hcl* (Cyclobenzaprine Hcl*) 10 Mg Tablet, 10 MG PO TID, #20 TAB Prov:ELY JUAREZ PA-C 02/19/15 Reported Medications [none] Unknown Strength No Conflict Check 06/18/15 Allergies Allergies: Coded Allergies: Fish Containing Products (Verified Allergy, Unknown, RASH, 05/07/18) guaifenesin (Verified Allergy, Unknown, 05/07/18) PMhx/Soc Medical and Surgical Hx: pt denies Surgical Hx History of Surgery: No Anesthesia Reaction: No Hx Neurological Disorder: No Hx Respiratory Disorders: No Hx Cardiac Disorders: No Hx Psychiatric Problems: No Hx Miscellaneous Medical Probl: Yes (HIGH CHOLESTEROL,Fatty liver) Hx Alcohol Use: Yes (every weekend) Hx Substance Use: No Hx Tobacco Use: No Smoking Status: Never smoker FmHx Family History: No diabetes, No coronary disease, No other Physical Exam Vitals Vital Signs Date Temp Pulse Resp B/P (MAP) Pulse Ox O2 O2 Flow FiO2 Time Delivery Rate 10/25/18 98.4 71 18 153/71 97 09:24 (98) Physical Exam GENERAL: The patient is well-appearing, well-nourished, in no acute distress HEENT: Atraumatic. Conjunctivae are pink. Pupils equal, round, and reactive to light. There is no scleral icterus. Tympanic membranes clear bilaterally. Oropharynx clear. NECK: C-spine is soft and supple. There is no meningismus. There is no cervical lymphadenopathy. CHEST: Clear to auscultation bilaterally. There are no rales, wheezes or rhonchi. HEART: Regular rate and rhythm. No murmurs, clicks, rubs or gallops. SKIN: Small erythematous sites noted to the bilateral forearms with mild surrounding erythema. No pustules or fluctuance. Procedures/MDM DM: 38-year-old male presenting with bug bites. I have low suspicion for abscess formation. Patient denies IV drug use. I do not feel oral antibiotics are indicated. Patient is discharged with topical creams. Patient is told symptoms change or worsen to return immediately to the ER. Patient is discharged with strict ER precautions and told to follow-up with primary care within 1 to 2 days for close evaluation. All questions answered at discharge Departure Diagnosis: Primary Impression: Insect bite Condition: Stable Patient Instructions: Insect Bite Referrals: [facility] YOU HAVE RECEIVED A MEDICAL SCREENING EXAM AND THE RESULTS INDICATE THAT YOU DO NOT HAVE A CONDITION THAT REQUIRES URGENT TREATMENT IN THE EMERGENCY DEPARTMENT. FURTHER EVALUATION AND TREATMENT OF YOUR CONDITION CAN WAIT UNTIL YOU ARE SEEN IN YOUR DOCTORS OFFICE WITHIN THE NEXT 1-2 DAYS. IT IS YOUR RESPONSIBILITY TO MAKE AN APPOINTMENT FOR FOLOW-UP CARE. IF YOU HAVE A PRIMARY DOCTOR --you should call your primary doctor and schedule an appointment IF YOU DO NOT HAVE A PRIMARY DOCTOR YOU CAN CALL OUR PHYSICIAN REFERRAL HOTLINE AT IF YOU CAN NOT AFFORD TO SEE A PHYSICIAN YOU CAN CHOSE FROM THE FOLLOWING [facility] [address] [facility]. [facility] [address] [facility] [facility] [address] [facility]. [facility] [address] [facility] [facility] [address] [facility]. [facility]. [address] Additional Instructions: FOLLOW UP WITH YOUR PRIMARY CARE PHYSICIAN TOMORROW.Return to this facility if you are not improving as expected. ZACARIAS FRITZ PA-C Oct 25, 2018 13:24
== END 2018-10-25 10:40 | disposition home or self-care (01) ==
LOC: FTE 09:21
DX: S50.861A Insect bite (nonvenomous) of right forearm, initial encounter (principal); W57.XXXA Bitten or stung by nonvenomous insect and other nonvenomous arthropods, initial encounter; Y92.9 Unspecified place or not applicable
CPT/HCPCS: 99282